=== PATIENT | female | born 1970 | race Caucasian/White ===

== ENCOUNTER 2016-09-19 18:39 | Emergency (ER) | payer OTHER ==
[2016-09-19 18:52] VITALS: BP 113/71
--- NOTE | 2016-09-19 22:01 | ED Physician Documentation ---
Animal Bite - HISTORIAN Historian: patient - HPI Stated Complaint: cat bite Chief Complaint: Animal Bite Additional Information: domestic, pet cat, all shots, indoor cat, pt. was breaking up a cat fight at home, bit right 2nd finger Onset: today Where: home Animal: cat Appearance of Animal: appeared well Animal's Immunization Status: UTD Observation/ Capture of Animal: animal is known, can be observed Context of Attack: animals fighting Severity of Injury: bitten Location of Injury: R upper extremity (index finger) Associated Symptoms: none Further Comments: no - ROS CONST: none EYES/ENT: none CVS/RESP: none NEURO: none GI/: none MS/SKIN/LYMPH: none - PAST HX Past History: other (allergies, depression) Immunizations: UTD Allergies/Adverse Reactions: Allergies Allergy/AdvReac Type Severity Reaction Status Date / Time Penicillins AdvReac Unknown Face Unverified 09/19/16 18:46 Swelling cephalexin monohydrate AdvReac Nausea/Vomi Verified 09/19/16 18:46 [From Keflex] ting Home Medications: Ambulatory Orders Medication Instructions Recorded Sertraline HCl 100 mg PO DAILY u2 02/08/13 Loratadine [Claritin] 10 mg PO QDAY 09/19/16 - SOCIAL HX Smoking History: non-smoker Alcohol Use: heavy Drug Use: none - FAMILY HX Family History: no significant history - VITAL SIGNS Vital Signs: Vital Signs Temp Pulse Resp BP Pulse Ox 99.0 F 86 16 113/71 95 09/19/16 19:10 09/19/16 19:10 09/19/16 19:10 09/19/16 19:10 09/19/16 19:10 - REVIEWED ASSESSMENTS Nursing Assessment Reviewed: Yes Vitals Reviewed: Yes Progress - Results/Orders Results/Orders: none ordered - Progress Progress: pt. stable entire time in er Critical Care Note - Critical Care Note Total Time (mins): 0 ED Results Lab/Radiology - Lab Results Lab Results: none ordered - Radiology Radiology Impressions: none ordered Animal Bite Physical Exam - Physical Exam General Appearance: alert, mild distress Skin: other (single nonbleeding puncture, no erythema) Neuro/Vascular/Tendon: no vascular compromise, oriented x3, sensation nml, CN's nml as tested Psych: mood/affect nml, depressed mood/affect HEENT: atraumatic, LINDEN, eye lids/conjun uninjured, ENT nml external inspect Neck: uninjured, nml inspection Resp/CVS: chest non-tender, breath sounds nml, heart sounds nml, no resp. distress, lungs clear, reg. rate & rhythm Abdomen: uninjured,nml inspection Back: uninjured, nml inspection Extremities: no infection, other (minimal edema). No: joint penetration suspect Discharge Clincal Impression: Cat bite involving extremity Referrals: SKYLAR TINOCO FNP [Primary Care Provider] - 2 Days Home Medications: Ambulatory Orders Sertraline HCl 100 mg PO DAILY u2 02/08/13 Loratadine [Claritin] 10 mg PO QDAY 09/19/16 Comments: discharged home with script for clindamycin 300 mg p.o. qid #28 Condition: Stable Disposition: 01 HOME, SELF-CARE Decision to Admit: NO Decision Time: 19:00
== END 2016-09-19 19:10 | disposition home or self-care (01) ==
LOC: ED 18:39
DX: S61.250A Open bite of right index finger without damage to nail, initial encounter (principal); W55.01XA Bitten by cat, initial encounter; Y93.9 Activity, unspecified; Y99.9 Unspecified external cause status
CPT/HCPCS: 99283